=== PATIENT | male | born 1995 | race Two or more races ===

== ENCOUNTER 2023-12-30 22:50 | Emergency (ER) | payer SELFPAY ==
[~2023-12-30] VITALS: Ht 167.6 cm; Wt 68.0 kg
[2023-12-30 22:50] VITALS: BP 130/78; PULSE 92; RESP 16; O2SAT 99
== END 2023-12-31 00:16 | disposition left against medical advice (07) ==
LOC: EDBD 22:50 → ER 22:50
DX: L29.9 Pruritus, unspecified (principal); R20.8 Other disturbances of skin sensation; Z53.21 Procedure and treatment not carried out due to patient leaving prior to being seen by health care provider

== ENCOUNTER 2024-12-03 17:33 | Emergency (ER) | payer MEDICAID, OTHER ==
[~2024-12-03] VITALS: Ht 177.8 cm; Wt 75.0 kg
[2024-12-03] MEDS: CEFEPIME 1GM/ 50ML 50 ML IV ONE (06:33)
[~2024-12-03 17:33] MED LIST: CEFEPIME 1GM/ 50ML 50 ML IV SCH
--- NOTE | 2024-12-03 19:02 | ED.PDOC ---
History of Present Illness HPI Comments 29 year old male with a Hx of Fentanyl Abuse was BIBA for the c/c of a potential Abscess w/ associated pain localized to the R face and right upper mouth area. Pt notes that his pain started today, and has notable swelling on the right side of his face. Pt is noted to appear drowsy and admitted to taking Fentanyl earlier today. Pt is A&Ox4 and answering questions appropriately. No other associated symptoms, modifiers, recent injuries or sick contacts present at this time. Chief Complaint: Abscess Time Seen by MD: 18:58 Reviewed Notes: Nurses Notes, Garment Folder Notes, Medications, Allergies Allergies: Coded Allergies: NO KNOWN ALLERGIES (Unverified , 12/03/24) Home Meds Active Scripts Hydrocodone-Acetaminophen (Hydrocodone Bitartrate/AC 5-325 mg) 1 Tab Tab, 1-2 TAB PO Q6HP PRN, #20 TAB prn pain Prov:JAYLEN QUICK MD 12/03/24 Clindamycin HCl (Clindamycin Hydrochloride) 300 Mg Cap, 300 MG PO QID for 10 Days, #40 CAP Prov:JAYLEN QUICK MD 12/03/24 Information Source: Patient, Emergency Med Personnel Mode of Arrival: EMS Severity: Moderate Timing: Hours Duration: Since onset, Hours Prehospital treatment: None Past Medical History PAST MEDICAL HISTORY: Denies Surgical History: Denies all surgeries Family History Family History: Unknown Social History Smoker: Non-Smoker Alcohol: Denies ETOH Use Drugs: Other Lives In: Home All Other Systems: Reviewed and Negative (Comprehensive systems review obtained and negative except for what is stated in the HPI.) Physical Exam General Appearance: No Apparent Distress HEENT: PERRL/EOMI, Other (Right mid face soft tissue swelling and tenderness. Multiple Right upper tooth fractures with gingival erythema and tenderness. No fluctuance or discharge.) Neck: Full Range of Motion, Non-Tender, Normal Inspection, Supple Respiratory: Lungs Clear, No Accessory Muscle Use, No Respiratory Distress, Normal Breath Sounds Cardiovascular: No Edema, No JVD, Tachycardia Breast Exam: Deferred Gastrointestinal: Non Tender, Soft Genitalia: Deferred Pelvic: Deferred Rectal: Deferred Extremities: Normal inspection, Normal range of motion, Non-tender, No pedal edema Neurologic: Alert (Oriented x4), Normal Affect, Normal Mood, Other (Moves all extremities. No gross focal deficit.) Cerebellar Function: NOT DONE Reflexes: NOT DONE Skin: Dry, Normal Color, Warm Lymphatic: NOT DONE Was a procedure done? Was a procedure done?: No Differential Dx Considerations may include: Abscess, dental infection, among others X-Ray, Labs, Meds, VS Vital Signs Date Time Temp Pulse Resp B/P (MAP) Pulse Ox O2 Delivery O2 Flow Rate FiO2 12/03/24 20:48 99.5 54 18 121/61 (81) 96 99.5 12/03/24 17:37 98.9 117 18 118/74 98 98.9 Lab Test 12/03/24 19:29 Range/Units White Blood Count 9.0 4.4-10.8 10^3/uL Red Blood Count 4.56 4.5-5.90 10^6/uL Hemoglobin 13.1 L 13.5-17.5 g/dL Hematocrit 38.4 L 41.0-53.0 % Mean Corpuscular Volume 84.2 80.0-100.0 fL Mean Corpuscular Hemoglobin 28.7 28.0-32.0 pg Mean Corpuscular Hemoglobin Concent 34.0 32.0-36.0 g/dL Red Cell Distribution Width 13.6 11.8-14.3 % Platelet Count 276 140-450 10^3/uL Mean Platelet Volume 6.7 L 6.9-10.8 fL Neutrophils (%) (Auto) 70.9 37.0-80.0 % Lymphocytes (%) (Auto) 18.2 10.0-50.0 % Monocytes (%) (Auto) 8.9 0.0-12.0 % Eosinophils (%) (Auto) 1.4 0.0-7.0 % Basophils (%) (Auto) 0.6 0.0-2.0 % Neutrophils # (Auto) 6.4 1.6-8.6 10 ^3/uL Lymphocytes # (Auto) 1.6 0.4-5.4 10 ^3/uL Monocytes # (Auto) 0.8 0-1.3 10 ^3/uL Eosinophils # (Auto) 0.1 0-0.8 10 ^3/uL Basophils # (Auto) 0.1 0-0.2 10 ^3/uL Nucleated Red Blood Cells 0.0 % Sodium Level 140 136-145 mmol/L Potassium Level 3.9 3.5-5.1 mmol/L Chloride Level 101 98-107 mmol/L Carbon Dioxide Level 31 20-31 mmol/L Anion Gap 8 5-15 Blood Urea Nitrogen 9 9-23 mg/dL Creatinine 0.67 L 0.700-1.30 mg/dL Glomerular Filtration Rate Calc 131 >90 mL/min BUN/Creatinine Ratio 13.4 10.0-20.0 Serum Glucose 105 74-106 mg/dL Calcium Level 8.9 8.7-10.4 mg/dL Current Medications Medications (Trade) Dose Ordered Sig/Ramiro Route Start Time Stop Time Status Last Admin Vancomycin HCl 200 ml @ 200 mls/hr ONCE ONCE IV 12/03/24 19:00 12/03/24 19:59 DC 12/04/24 02:38 Ketorolac Tromethamine (Toradol Injection) 30 mg ONCE ONCE IV 12/03/24 19:00 12/03/24 19:01 DC 12/04/24 02:38 PATIENT: MAURIZIO ALLAN ACCT: [id number] UNIT: [id number] : 1995 LOC: ER ROOM / BED: / AGE / SEX: 29 / M ADM STATUS: REG ER SERVICE 47 ORDERING PHYSICIAN: JAYLEN QUICK MD PROCEDURE(s): FAC2C - MAXILLOFACIAL WITHOUT REASON: L facial swelling r/o abscess ORDER NUMBER(s): [id number], ACCESSION NUMBER(s): [id number] CT MAXILLOFACIAL WITHOUT INDICATION: facial swelling r/o abscess EXAM DATE: 12/03/2024 08:23 PM COMPARISON: None RADIATION DOSE: CTDIvol: 66.97 mGy, DLP: 1447.33 mGy*cm PROCEDURE: Using the CT scanner, contiguous noncontrast scans were obtained from above the orbital rims to below the mandible. Coronal and sagittal reformatted images were then generated. All CT scans at this medical facility are performed using dose modulation techniques as appropriate to a performed exam including the following: Automated exposure control was utilized; adjustment of the MA and/or KV according to patient size; and use of iterative reconstruction technique. FINDINGS: No acute displaced fracture. There is prominent swelling and infiltration of the anterior subcutaneous tissues within the right mid and lower face. No drainable collection is seen. The orbits are unremarkable. There is mucosal thickening along with polyps versus retention cysts within the puyai-ahbbwqf-dact-left maxillary antrum and left sphenoid sinus. There is mild mucosal thickening within the ethmoid air cells. The visualized portions of the mastoid air cells appear clear. IMPRESSION: 1. Prominent swelling and infiltration within the right face suggesting infectious/inflammatory process in the appropriate clinical setting. No drainable collection is seen. A posttreatment follow-up is suggested to ensure appropriate resolution. 2. No acute displaced fracture. X-Ray, Labs, Meds, VS Comment 29-year-old male with no significant past medical history presenting with right facial swelling and pain Initial vitals remarkable for heart rate 117 Exam remarkable for right facial soft tissue swelling and tenderness, right upper tooth fractures and gingival tenderness Rhythm strip independently interpreted by me: Sinus tach, rate 117, no ectopy. CT maxillofacial IMPRESSION: 1. Prominent swelling and infiltration within the right face suggesting infectious/inflammatory process in the appropriate clinical setting. No drainable collection is seen. A posttreatment follow-up is suggested to ensure appropriate resolution. 2. No acute displaced fracture. CBC and basic metabolic panel unremarkable Patient treated with the following in the ED: 30 cc/kilogram LR bolus, vancomycin per pharmacy IV, cefepime 2 g IV, Toradol 30 mg IV, Butler 10/325 mg p.o. On re-evaluation, patient states pain has improved. Vitals were stable. Hospitalization was considered, however patient had rapid improvement of symptoms with treatment in the ED and I no longer feel hospitalization is necessary. Patient now appears stable for discharge with close outpatient follow-up with a dentist and with his primary doctor. Rx clindamycin, Butler Time of 1ST Reevaluation: 19:28 Reevaluation 1ST: Unchanged Patient Education/Counseling: Diagnosis, Treatment, Need For Follow Up Family Education/Counseling: No Family Present SEPSIS Sepsis Screen Date sepsis recognized/suspect: Dec 03, 2024 Time Sepsis recognized/suspect: 1736 Recent Procedure: No On Antibiotic Therapy: No Respiratory Rate >20: No Heart Rate >90: Yes Temp<36 C (96.8 F) or >38.3 C: No SBP <90 or MAP <65 mmHG: No New Acute Mental Status Change: No Is the patient on CPAP, BIPAP,: No SEPSIS EXCLUSION NOTE: Sepsis Exclusion Note: Patient presents with SIRS criteria, but the SIRS response is attributed to [ discomfort], not sepsis. Sepsis bundle is not initiated at this time, due to this reason. Further management will focus on the treatment of the above condition (s). Physician Orders Electrocardigram (12/03/24 18:48) Drug Screen (12/03/24 18:48) Maxillofacial Without (12/03/24 18:48) Blood Culture (12/03/24 18:48) Cefepime 1gm/ 50ml (Maxipime 1gm/50ml) (12/03/24 22:00) Vital Signs Date Time Temp Pulse Resp B/P (MAP) Pulse Ox O2 Delivery O2 Flow Rate FiO2 12/03/24 20:48 99.5 54 18 121/61 (81) 96 99.5 12/03/24 17:37 98.9 117 18 118/74 98 98.9 Laboratory Tests Test 12/03/24 19:29 White Blood Count 9.0 10^3/uL (4.4-10.8) Medications Medications Dose Ordered Sig/Ramiro Route Start Time Stop Time Status Last Admin Dose Admin Ketorolac Tromethamine 30 mg ONCE ONCE IV 12/03/24 19:00 12/03/24 19:01 DC 12/04/24 02:38 Vancomycin HCl 200 ml @ 200 mls/hr ONCE ONCE IV 12/03/24 19:00 12/03/24 19:59 DC 12/04/24 02:38 Departure 1 Departure Time of Disposition: 21:48 Impression: Primary Impression: Dental infection Disposition: HOME / SELF CARE / HOMELESS Condition: Stable Additional Instructions: Your blood tests were unremarkable. Your CT scan showed there is no abscess, however there is a dental infection. I have prescribed antibiotics and pain medication. Follow-up with your primary doctor and your dentist in 1-2 days. Return to ER for persistent or worsening symptoms. e-Prescriptions Hydrocodone-Acetaminophen (Hydrocodone Bitartrate/AC 5-325 mg) 1 Tab Tab 1-2 TAB PO Q6HP PRN, #20 TAB prn pain Prov: JAYLEN QUICK MD 12/03/24 Clindamycin HCl (Clindamycin Hydrochloride) 300 Mg Cap 300 MG PO QID for 10 Days, #40 CAP Prov: JAYLEN QUICK MD 12/03/24 Discharged With: Self Critical Care Note Critical Care Time?: No Stability Stability form required: No Heart Score Heart Score: Heart Score Response (Comments) Value History N/A 0 EKG N/A 0 Age N/A 0 Risk Factors N/A 0 Troponin N/A 0 Total 0 I personally scribed for JAYLEN QUICK MD ([email or web address] on 12/03/24 at 19:02. Electronically submitted by Yeison Arreola ([email or web address]). I personally scribed for JAYLEN QUICK MD ([email or web address]) on 12/03/24 at 21:12. Electronically submitted by Yeison Arreola ([employer]). I personally scribed for JAYLEN QUICK MD ([email or web address]) on 12/04/24 at 04:21. Electronically submitted by Yeison Arreola ([email or web address]). JAYLEN QUICK MD Dec 03, 2024 19:02
[2024-12-03 19:57] LABS: Hematocrit 38.4 % (41.0-53.0); Hemoglobin 13.1 g/dL (13.5-17.5); Mean Corpuscular Hemoglobin 28.7 pg (28.0-32.0); Mean Corpuscular Volume 84.2 fL (80.0-100.0); Nucleated Red Blood Cells % 0.0 %
[2024-12-03 20:19] LABS: Chloride 101 mmol/L (98-107); Potassium 3.9 mmol/L (3.5-5.1); Sodium 140 mmol/L (136-145)
[2024-12-03 20:20] LABS: Anion Gap 8 (5-15)
[2024-12-03 20:21] LABS: Calcium 8.9 mg/dL (8.7-10.4)
[2024-12-03 20:26] LABS: BUN/Creatinine Ratio 13.4 (10.0-20.0); Glucose 105 mg/dL (74-106)
[2024-12-03 20:27] LABS: Blood Urea Nitrogen 9 mg/dL (9-23); Carbon Dioxide 31 mmol/L (20-31)
[2024-12-03 20:48] VITALS: BP 121/61; PULSE 54; RESP 18; TEMP 99.5; O2SAT 96
--- NOTE | 2024-12-03 21:07 | DVH ---
CT MAXILLOFACIAL WITHOUT INDICATION: facial swelling r/o abscess EXAM DATE: 12/03/2024 08:23 PM COMPARISON: None RADIATION DOSE: CTDIvol: 66.97 mGy, DLP: 1447.33 mGy*cm PROCEDURE: Using the CT scanner, contiguous noncontrast scans were obtained from above the orbital ri ms to below the mandible. Coronal and sagittal reformatted images were then generated. All CT scans at this medical facility are performed using dose modulation techniques as appropriate t o a performed exam including the following: Automated exposure control was utilized; adjustment of th e MA and/or KV according to patient size; and use of iterative reconstruction technique. FINDINGS: No acute displaced fracture. There is prominent swelling and infiltration of the anterior subcutaneous tissues within the right mi d and lower face. No drainable collection is seen. The orbits are unremarkable. There is mucosal thi ckening along with polyps versus retention cysts within the mnstp-vmgbqyv-bwkh-left maxillary antrum and left sphenoid sinus. There is mild mucosal thickening within the ethmoid air cells. The visuali zed portions of the mastoid air cells appear clear. IMPRESSION: 1. Prominent swelling and infiltration within the right face suggesting infectious/inflammatory proce ss in the appropriate clinical setting. No drainable collection is seen. A posttreatment follow-up is suggested to ensure appropriate resolution. 2. No acute displaced fracture.
[2024-12-03] MEDS ORDERED: CLIN-203 PO (21:50)
[2024-12-03] MEDS ORDERED: HYDR-4902 PO (21:50)
[2024-12-04] MEDS: KETOROLAC TROMETH 30 MG/ML 1ML VIAL IV ONE (02:38)
[2024-12-04] MEDS: HYDROcodone-ACET 10/325MG TAB PO ONE (02:38)
[2024-12-04] MEDS: VANCOMYCIN 1GM/200ML PM 200 ML IV ONE (02:38)
[2024-12-04] MEDS: LACTATED RINGER'S 2,200 ML IV ONE (06:50)
== END 2024-12-04 08:47 | disposition home or self-care (01) ==
LOC: EDBD 17:33 → ER 17:33
DX: K04.7 Periapical abscess without sinus (principal); Z79.899 Other long term (current) drug therapy
CPT/HCPCS: 36415; 70486; 80048; 82947; 85025; 87040; 96361; 96365; 96366; 96368; 96375; 99285; J0692; J1885; J3373; J7120; 96367